=== PATIENT | male | born 1960 | race Caucasian/White ===

== ENCOUNTER 2016-03-17 14:26 | Emergency (ER) | payer OTHER ==
[~2016-03-17] VITALS: Ht 177.8 cm; Wt 113.4 kg
--- NOTE | 2016-03-17 15:06 | PHYS DOC ---
Past Medical History Past Medical History: Asthma, Depression, Diabetes-Type II, Hypertension Additional Past Medical Histor: BPH Past Surgical History: Other Additional Past Surgical Histo: L FINGER Alcohol Use: Rarely Drug Use: None Adult General Chief Complaint Chief Complaint: DIZZY/LIGHT HEADED HPI HPI Patient is a 56 year old male who presents after having episodes of dizziness. Patient reports this morning he was having "white-outs", where he would get lightheaded but not quite lose consciousness. He says this occurred when he would do things like stand up quickly. He has been staying at the [facility] ; his BP was checked there and was found to be low, down to 80/60 at its lowest. BP have improved by this time, and patient says he is asymptomatic at this time and feeling well. He denies any chest discomfort or SOB at any point. Of note, he had been out of his HTN meds for some time and just took them this morning for the first time in a while (these include lisinopril, hydralazine, amlodipine, atenolol). Review of Systems Review of Systems Constitutional: Lightheaded. Denies fever or chills Eyes: Denies change in visual acuity or eye pain HENT: Denies nasal congestion or sore throat Respiratory: Denies cough or shortness of breath Cardiovascular: Denies chest pain GI: Denies abdominal pain, nausea, vomiting, bloody stools or diarrhea : Denies dysuria or hematuria Musculoskeletal: Denies back pain or joint pain Integument: Denies rash or skin lesions Neurologic: Denies headache, focal weakness or sensory changes Current Medications Current Medications Current Medications Medications (Trade) Dose Ordered Sig/Mando Start Time Stop Time Status Last Admin Dose Admin Famotidine (Pepcid) 20 mg 1X ONCE 03/17/16 17:00 03/17/16 17:01 DC 03/17/16 17:00 20 MG Sodium Chloride (Iv Sodium Chloride 0.9% 1000ml Bag) 1,000 ml @ 1,000 mls/hr 1X ONCE 03/17/16 15:15 03/17/16 16:14 DC 03/17/16 15:22 1,000 MLS/HR Allergies Allergies Allergies Coded Allergies Type Severity Reaction Last Updated Verified metformin Adverse Reaction Unknown PT STATES HE IS ABLE TO TAKE THE EXTENDED RELEASE. 03/17/16 No Physical Exam Physical Exam Constitutional: Well developed, well nourished, no acute distress, non-toxic appearance HENT: Normocephalic, atraumatic, bilateral external ears normal Eyes: PERRL, EOMI, conjunctiva normal, no discharge Neck: Normal range of motion, no stridor Cardiovascular: Heart rate normal, regular rhythm, no murmur Lungs & Thorax: Bilateral breath sounds clear to auscultation Abdomen: Bowel sounds normal, soft, non-distended, no TTP Skin: Warm, dry, no erythema, no rash Extremities: No obvious deformity, no edema Neurologic: Alert and oriented X 3, no gross deficits noted Psychologic: Affect normal, judgement normal, mood normal Current Patient Data Vital Signs Vital Signs Date Time Temp Pulse Resp B/P Pulse Ox O2 Delivery O2 Flow Rate FiO2 03/17/16 16:28 72 13 140/77 97 Room Air 03/17/16 14:26 98.4 98.4 Lab Values Laboratory Tests Test 03/17/16 14:30 03/17/16 15:33 03/17/16 15:50 White Blood Count 8.5x10^3/uL (4.0-11.0) Red Blood Count 5.35x10^6/uL (4.30-5.70) Hemoglobin 14.1g/dL (13.0-17.5) Hematocrit 42.6% (39.0-53.0) Mean Corpuscular Volume 80fL (79-100) Mean Corpuscular Hemoglobin 26pg (25-35) Mean Corpuscular Hemoglobin Concent 33g/dL (31-37) Red Cell Distribution Width 14.8% (11.5-14.5) H Platelet Count 243x10^3/uL (140-400) Neutrophils (%) (Auto) 79% (31-73) H Lymphocytes (%) (Auto) 12% (24-48) L Monocytes (%) (Auto) 7% (0-9) Eosinophils (%) (Auto) 1% (0-3) Basophils (%) (Auto) 1% (0-3) Neutrophils # (Auto) 6.7x10^3uL (1.8-7.7) Lymphocytes # (Auto) 1.1x10^3/uL (1.0-4.8) Monocytes # (Auto) 0.6x10^3/uL (0.0-1.1) Eosinophils # (Auto) 0.1x10^3/uL (0.0-0.7) Basophils # (Auto) 0.1x10^3/uL (0.0-0.2) Sodium Level 145mmol/L (136-145) Potassium Level 3.8mmol/L (3.5-5.1) Chloride Level 105mmol/L (98-107) Carbon Dioxide Level 29mmol/L (21-32) Anion Gap 11 (6-14) Blood Urea Nitrogen 29mg/dL (8-26) H Creatinine 2.1mg/dL (0.7-1.3) H Estimated GFR (Cockcroft-Gault) 32.7 Glucose Level 158mg/dL (70-99) H Calcium Level 9.5mg/dL (8.5-10.1) Troponin I Quantitative < 0.017ng/mL (0.000-0.055) Laboratory Tests 03/17/16 14:30 Laboratory Tests 03/17/16 15:33 EKG EKG EKG (my read): sinus rhythm, rate 77, LAD, intervals wnl, nonspecific ST changes Radiology/Procedures Radiology/Procedures CXR (my read): No acute abnormality Course & Med Decision Making Course & Med Decision Making Pertinent Labs and Imaging studies reviewed. (See chart for details) Patient is 56 year old male who presents after presyncopal episodes this morning. Suspect this is related to resuming BP meds, most notably atenolol. Asymptomatic at this time, no concerning findings on physical exam. Will screen for more serious pathology with EKG, CXR, labs. IVF bolus ordered. EKG and CXR ok per my read. Labs notable for creatinine 2.1; no prior values in chart to compare. Discussed results with patient who believes the creatinine may have been high in the past, but he is unsure of what the value was. He remains asymptomatic. Discussed with patient the option of inpatient observation vs discharge and outpatient follow up. Patient would like to be discharged at this time; I discussed the importance of close outpatient follow up and gave strict return precautions. Patient agreeable with plan. Will have him hold the atenolol until he follows up with PCP. Discharged with instructions for close follow up and strict return precautions. Dragon Disclaimer Dragon Disclaimer This electronic medical record was generated, in whole or in part, using a voice recognition dictation system. Departure Departure Impression: Primary Impression: Lightheadedness Additional Impression: Serum creatinine raised Disposition: HOME, SELF-CARE Condition: IMPROVED Patient Instructions: Dizziness, Kidney Function Tests Additional Instructions: Thank you for allowing us to provide care today in the Emergency Department. Your dizziness earlier today was likely related to your blood pressure medication. Do not take the atenolol until you follow up with your primary care physician. A blood test called creatinine was somewhat elevated (2.1). You will need to have this followed up by your regular doctor. Be sure to drink plenty of water. Schedule a follow up appointment with your primary care doctor as soon as possible to discuss your blood pressure medication and your kidney function. Return promptly to the Emergency Department if you develop any new or concerning symptoms. Problem Qualifiers JACLYN COOPER MD Mar 17, 2016 15:05
[2016-03-17] MEDS ORDERED: IV NORMAL SALINE 1000ML BAG 1,000 ML IV ONE (15:15)
[2016-03-17 15:32] LABS: BASO # 0.1 x10^3/uL (0.0-0.2); BASO % 1 % (0-3); EOS % 1 % (0-3); HEMATOCRIT 42.6 % (39.0-53.0); HEMOGLOBIN 14.1 g/dL (13.0-17.5); LYMPH # 1.1 x10^3/uL (1.0-4.8); LYMPH % 12 % (24-48); MEAN CORPUSCULAR HEMOGLOBIN 26 pg (25-35); MEAN CORPUSCULAR HGB CONC 33 g/dL (31-37); MEAN CORPUSCULAR VOLUME 80 fL (79-100); MONO % 7 % (0-9); NEUT % 79 % (31-73); PLATELET COUNT 243 x10^3/uL (140-400); RED BLOOD COUNT 5.35 x10^6/uL (4.30-5.70); RED CELL DISTRIBUTION WIDTH 14.8 % (11.5-14.5); WHITE BLOOD COUNT 8.5 x10^3/uL (4.0-11.0)
--- NOTE | 2016-03-17 16:31 | EKG ---
[facility] [address] [place] [address] Test Date: 2016-03-17 Test Time: 14:32:34 Pat Name: DWAYNE BONNER Department: Room: Gender: M Resident Care Supervisor: : [id number] Requested By: JACLYN COOPER Order Number: [id number] Reading MD: Jeffrey Shelton Measurements Intervals [place] Rate: 77 P: -42 IL: 142 QRS: -27 QRSD: 106 T: 31 QT: 412 QTc: 468 Interpretive Statements SINUS RHYTHM Electronically Signed On 03-19-2016 10:35:40 REST ROOM MATRON by Jeffrey Shelton
[2016-03-17] MEDS ORDERED: FAMOTIDINE 20 MG TABLET. PO ONE (17:00)
[2016-03-17 17:03] LABS: CALCIUM 9.5 mg/dL (8.5-10.1); CREATININE 2.1 mg/dL (0.7-1.3); GFR 32.7; POTASSIUM 3.8 mmol/L (3.5-5.1)
[2016-03-17 17:28] VITALS: BP 155/73
--- NOTE | 2016-03-18 08:19 | RAD ---
EXAM: Chest, 2 views. HISTORY: Dizziness. COMPARISON: None. FINDINGS: Frontal and lateral views of the chest are obtained. There is no infiltrate, effusion or pneumothorax. The heart is normal in size. There is blunting of the left costophrenic angle likely due to slight pleural thickening. IMPRESSION: No acute pulmonary finding.
== END 2016-03-17 18:00 | disposition home or self-care (01) ==
LOC: ER 14:26
DX: R42 Dizziness and giddiness (principal); R74.8 Abnormal levels of other serum enzymes; I10 Essential (primary) hypertension; F32.9 Major depressive disorder, single episode, unspecified; E11.9 Type 2 diabetes mellitus without complications; J45.909 Unspecified asthma, uncomplicated; Z88.8 Allergy status to other drugs, medicaments and biological substances
CPT/HCPCS: 36415; 71020; 80048; 84484; 85027; 93005; 96360; 99285; J7030

== ENCOUNTER → 2016-06-13 | Outpatient (CLI) | payer OTHER | END | disposition home or self-care (01) | LOC: PF 07:12 | PROVIDERS: ATTEND Surgery | DX: J44.9 Chronic obstructive pulmonary disease, unspecified (principal) | CPT/HCPCS: 94060 ==